=== PATIENT | female | born 1950 | race Caucasian/White ===

== ENCOUNTER → 2021-01-29 | Outpatient (CLI) | payer MEDICARE ==
[~2021-01-29] VITALS: Ht 157.5 cm; Wt 69.5 kg
[~2021-01-29] MED LIST: ASPIRIN E.C. 8181 MG PO; LEXAPRO 10MG10 MG PO; NEURONTIN100 MG/CAP PO; TENORMIN 5050 MG/TAB PO; ZOCOR 40MG40 MG PO
[2021-01-29 07:33] VITALS: BP 139/84; PULSE 65
--- NOTE | 2021-01-29 08:26 | NUR ---
DR MORA CAME AND SPOKE TO PT. THE PROCEDURE WAS CANCELLED.
== END ==
LOC: COL.RAD 07:00
DX: R91.8 Other nonspecific abnormal finding of lung field (principal)